=== PATIENT | male | born 1995 | race Caucasian/White ===

== ENCOUNTER 2016-09-29 04:14 | Emergency (ER) | payer OTHER ==
[~2016-09-29] VITALS: Ht 177.8 cm; Wt 84.1 kg
[2016-09-29 04:23] VITALS: TEMP 99
[2016-09-29 05:27] VITALS: BP 137/86; PULSE 98
[2016-09-29] MEDS ORDERED: CEPHALEXIN500 M1 PO (05:27)
[2016-09-29] MEDS ORDERED: NORCO 325 MG-51 TAB PO (05:27)
== END 2016-09-29 05:45 | disposition home or self-care (01) ==
LOC: COL.ER 04:14
DX: S09.90XA Unspecified injury of head, initial encounter (principal); S01.01XA Laceration without foreign body of scalp, initial encounter; S42.252A Displaced fracture of greater tuberosity of left humerus, initial encounter for closed fracture; S42.192A Fracture of other part of scapula, left shoulder, initial encounter for closed fracture; S63.601A Unspecified sprain of right thumb, initial encounter; W17.89XA Other fall from one level to another, initial encounter; W22.09XA Striking against other stationary object, initial encounter; Y92.828 Other wilderness area as the place of occurrence of the external cause
CPT/HCPCS: J1885